=== PATIENT | female | born 1955 | race Caucasian/White ===

== ENCOUNTER 2019-09-05 15:48 | Observation (INO) | payer OTHER ==
--- NOTE | 2019-09-05 17:11 | ED ---
Upper Extremity Pain - HPI Summary HPI Summary: This pt is a 63 y/o female, accompanied by , presenting to [facility] referred by PCP for left arm pain. Pt reports last week she was in a pool in [place] when she had a sudden sharp pain down her left arm. At that time she rates her pain 10/10 in severity. Pt notes this pain resolved completely. However today while at work at around 1200 she had the same pain again on left arm. Additionally today her jaw felt sore and had right sided groin pain. She notes the severity of her symptoms are rated 1/10 in severity. Denies fever, chills, sweats, cough, SOB, chest pain. Denies erythema of eyes, sore throat, abd pain, nausea, vomiting, dysuria, hematuria, myalgia, edema, rash, or dizziness. PMHx borderline high cholesterol. FHx of mother with [place] at age 52 and triple bypass. - History of Current Complaint Chief Complaint: EDChestPainROMI Stated Complaint: LEFT ARM PAIN/SENT BY DR PER PT Time Seen by Provider: 09/05/19 16:56 Hx Obtained From: Patient Mechanism Of Injury: Other - no trauma Onset/Duration: Started Days Ago Timing: Lasting Hours Severity Currently: Mild Pain Location: Arm - left Character: Sharp, Aching Alleviating Factor(s): Nothing Associated Signs & Symptoms: Negative: Swelling, Redness, Fever, Chest Pain, SOB , Diaphoresis, Nausea, Vomiting - Allergies/Home Medications Allergies/Adverse Reactions: Allergies Allergy/AdvReac Type Severity Reaction Status Date / Time No Known Allergies Allergy Verified 12/24/17 14:54 PMH/Surg Hx/FS Hx/Imm Hx Endocrine/Hematology History: Denies: Hx Diabetes Cardiovascular History: Reports: Hx Hypercholesterolemia - borderline Musculoskeletal History: Denies: Hx Osteoporosis - Cancer History Hx Chemotherapy: No Hx Radiation Therapy: No Infectious Disease History: No Infectious Disease History: Denies: Traveled Outside the [place] in Last 30 Days - Family History Known Family History: Positive: Cardiac Disease - Mother with [place] at age 52 and triple bypass - Social History Alcohol Use: Occasionally Substance Use Type: Reports: None Smoking Status (MU): Former Smoker Review of Systems Negative: Fever, Chills, Skin Diaphoresis Negative: Erythema Negative: Sore Throat Negative: Chest Pain Negative: Shortness Of Breath, Cough Negative: Abdominal Pain, Vomiting, Nausea Negative: dysuria, hematuria Musculoskeletal: Other - POSITIVE: left arm pain, jaw pain, right groin pain Negative: Myalgia, Edema Negative: Rash Neurological: Other - NEGATIVE: dizziness All Other Systems Reviewed And Are Negative: Yes Physical Exam - Summary Physical Exam Summary: Constitutional: Well-developed, Well-nourished, Alert. (-) Distressed Skin: Warm, Dry HENT: Normocephalic; Atraumatic Eyes: Conjunctiva normal Neck: Musculoskeletal ROM normal neck. (-) JVD, (-) Stridor, (-) Tracheal deviation Cardio: Rhythm regular, rate normal, Heart sounds normal; Intact distal pulses; The pedal pulses are 2+ and symmetric. Radial pulses are 2+ and symmetric. (-) Murmur Pulmonary/Chest wall: Effort normal. (-) Respiratory distress, (-) Wheezes, (-) Rales Abd: Soft, (-) Tenderness, (-) Distension, (-) Guarding, (-) Rebound Musculoskeletal: (-) Edema Lymph: (-) Cervical adenopathy Neuro: Alert, Oriented x3 Psych: Mood and affect Normal Triage Information Reviewed: Yes Vital Signs On Initial Exam: Initial Vitals Temp Pulse Resp BP Pulse Ox 97.3 F 75 16 0/0 96 09/05/19 15:55 09/05/19 15:55 09/05/19 15:55 09/05/19 15:55 09/05/19 15:55 Vital Signs Reviewed: Yes Procedures - Sedation Patient Received Moderate/Deep Sedation with Procedure: No Diagnostics - Vital Signs Vital Signs Temp Pulse Resp BP Pulse Ox 09/05/19 15:55 97.3 F 75 16 0/0 96 - Laboratory Result Diagrams: 09/05/19 17:33 09/05/19 17:33 Lab Statement: Any lab studies that have been ordered have been reviewed, and results considered in the medical decision making process. - Radiology Chest XR Radiology Interpretation Completed By: Radiologist Summary of Radiographic Findings: pending official radiology report. - EKG 16:01 Cardiac Rate: NL - at 69 bpm EKG Rhythm: Sinus Rhythm Summary of EKG Findings: EKG at 16:01 shows normal sinus rhythm at 69 bpm. No STEMI. Re-Evaluation - Re-Evaluation First Eval Re-Evaluation Time: 18:27 Change: Improved Comment: Pt reports all her symptoms have resolved after nitroglycerin. Course/Dx - Course Assessment/Plan: Pt is a 63 y/o female, accompanied by , presenting to [facility] referred by PCP for left arm pain. Pt reports last week she was in a pool in [place] when she had a sudden sharp pain down her left arm. At that time she rates her pain 10/10 in severity. Pt notes this pain resolved completely. However today while at work at around 1200 she had the same pain again on left arm. Additionally today her jaw felt sore and had right sided groin pain. She notes the severity of her symptoms are rated 1/10 in severity. Denies fever, chills, sweats, cough, SOB, chest pain. Lab results are unremarkable. In the ED course the pt was given aspirin and nitroglycerin. Pt reports all her symptoms have resolved after nitroglycerin. Discussed pt care with Dr. Hernandez, hospitalist, who accepted the pt for admission. - Diagnoses Provider Diagnoses: Acute angina - Physician Notifications Discussed Care of Patient With: Heaven Hernandez - hospitalist Time Discussed With Above Provider: 18:24 Instructed by Provider To: Admit As Inpatient Discharge ED - Sign-Out/Discharge Documenting (check all that apply): Patient Departure - Admit to [facility] - Discharge Plan Condition: Stable Disposition: ADMITTED TO [facility] Referrals: Willie Barrera MD [Primary Care Provider] - - Attestation Statements Document Initiated by Scribe: Yes Documenting Scribe: Desi Pizano Provider For Whom Scribe is Documenting (Include Credential): Daniel Guallpa MD Scribe Attestation: Desi Mandujano, scribed for Daniel Guallpa MD on 09/05/19 at 1851. Status of Scribe Document: Ready
[2019-09-05 17:41] LABS: ABS Basophils 0.1 10^3/ul (0-0.2); ABS Eosinophils 0.1 10^3/ul (0-0.6); ABS Lymphocytes 2.2 10^3/ul (1.0-4.8); ABS Monocytes 0.6 10^3/ul (0-0.8); ABS Neutrophils 5.7 10^3/ul (1.5-7.7); Eosinophil % 1.3 %; Hematocrit 48 % (35-47); Lymphocyte % 25.9 %; Mean Corpuscular HGB Conc 34 g/dL (31-36); Mean Corpuscular Hemoglobin 31 pg (27-31); Mean Corpuscular Volume 92 fL (80-97); Mean Platelet Volume 8.1 fL (7.4-10.4); Platelet Count 261 10^3/uL (150-450); Red Cell Distribution Width 14 % (10-15); White Blood Count 8.7 10^3/uL (3.5-10.8)
[2019-09-05] MEDS ORDERED: Nitroglycerin TAB 0.4 MG* 0.4 MG TAB SL ONE (17:50)
[2019-09-05] MEDS ORDERED: Aspirin 81 mg CHEW TAB* 81 MG TAB.CHEW PO ONE (17:50)
[2019-09-05 17:52] LABS: INR 0.96 (0.82-1.09)
[2019-09-05 18:03] LABS: Albumin 4.4 g/dL (3.2-5.2); Albumin/Globulin Ratio 1.5 (1-3); BUN/Creatinine Ratio 11.8 (8-20); Calcium 9.4 mg/dL (8.6-10.3); EGFR African American 93.3 (>60); EGFR Non-African American 77.1 (>60); Globulin 2.9 g/dL (2-4); Potassium 4.4 mmol/L (3.5-5.0); Total Bilirubin 0.4 mg/dL (0.2-1.0); Total Protein 7.3 g/dL (6.4-8.9)
[2019-09-05] MEDS ORDERED: Acetaminophen TAB* 325 MG PO PRN (19:09)
[2019-09-05] MEDS ORDERED: Al Hydrox/Mg Hydrox/Simet LIQ* 30 ML UDC PO PRN (19:09)
[2019-09-05] MEDS ORDERED: Enoxaparin(*) 40 MG/0.4 ML SYR SUBCUT SCH (21:00)
[2019-09-05] MEDS ORDERED: NS 0.9% 1000 ML** 1,000 ML IV SCH (21:15)
--- NOTE | 2019-09-05 23:28 | HP ---
CC: Dr. Varela * HISTORY AND PHYSICAL: DATE OF ADMISSION: 09/05/19 PRIMARY CARE PROVIDER: Dr. Varela. ATTENDING PHYSICIAN WHILE IN THE HOSPITAL: Dr. Laurent Garcia * (dictated by Elin Golden NP). CHIEF COMPLAINT: Chest pain. HISTORY OF PRESENT ILLNESS: Ms. Holt is a 63-year-old female with no significant past medical history who presented to the emergency room with complaints of left upper arm pain that started approximately new today. She rated the pain at a 6, described it as sharp and jabbing. The patient reports that she has also had a similar episode approximately 1 week ago while she was in [place]. She reports that at that time the pain lasted for 1 to 2 days and then subsided. The patient also reports that when she is walking fast over the past 2 months, she develops jaw pain that described as sore and aching that subsides with rest. She also develops this jaw pain with activity. Due to these symptoms, the patient presented for further evaluation at the recommendation of her primary care doctor, as she saw Dr. Barrera today who referred her to the emergency room for further evaluation. While in the emergency room, the patient had left arm pain rated at a 6, she did receive aspirin and nitro. She reports that after receiving the nitroglycerin, her left arm pain totally subsided. She denies any associated diaphoresis, nausea or vomiting, shortness of breath associated with the chest pain. She denies any fever, chills, recent illnesses, or edema. She denies any cough, hemoptysis. She does report occasional shortness of breath with exertion. She denies any nausea, vomiting, diarrhea, abdominal pain, gross hematuria, or dysuria. Denies any focal weakness, sensory loss, visual complaints, dysphagia, arthralgias, myalgias, rashes, lesions, open sores. Denies any psychosis. She does report a significant amount of stress at work as the patient reports she is getting ready to retire and is currently packing her home to move to [place]. While in the emergency room, the patient had routine lab work, her initial troponin was 0.00. She was given aspirin 324 mg and nitro sublingual x1 with complete resolution of her chest pain. Due to the patient's history of 2 episodes of left arm pain, improvement with nitro and family history, Hospital Medicine was asked to evaluate her for admission. PAST MEDICAL HISTORY: None. PAST SURGICAL HISTORY: 1. Hernia repair. 2. Eye surgery as a child. 3. Repair of deviated septum. 4. [place] teeth removal. HOME MEDICATIONS: None. ALLERGIES: No known drug allergies. FAMILY HISTORY: Mother had an [place] and triple bypass; first [place] was at the age of 52. No reported history of diabetes within the family. Father from melanoma. SOCIAL HISTORY: The patient reports that she stopped smoking 33 years ago. Prior to that, she smoked less than a quarter pack a day x15 years. Does report occasional alcohol use. No illicit drug use. She is . Surrogate decision maker in the event she is unable to make her own decision is her . She is a full code. REVIEW OF SYSTEMS: An 11-point review of systems was completed. All pertinent positives were mentioned in the HPI. PHYSICAL EXAMINATION GENERAL: At this time, Ms. Holt is a 63-year-old female. She is alert and oriented. Resting on the stretcher in the emergency room. She is in no acute distress. VITAL SIGNS: Blood pressure is 143/88, heart rate is 65, respirations are 20, O2 saturation 95%, temperature is 97.3. HEENT: Head is atraumatic, normocephalic. Eyes: EOMs are intact. Sclerae anicteric and not pale. Oral mucosa appeared to be moist. NECK: Supple. LUNGS: Clear to auscultation bilaterally. No wheezes, rales, or rhonchi. CARDIAC: S1, S2. Regular rate and rhythm. No murmurs, rubs, or gallops. ABDOMEN: Soft and nontender. Bowel sounds are present x4. EXTREMITIES: She is able to move all 4 extremities. There is no clubbing or cyanosis. NEUROLOGIC: She is awake, alert, and oriented x3. Speech is clear. Thought process is intact. There are no gross focal deficits. DIAGNOSTIC STUDIES/LAB DATA: WBCs are 8.7, RBCs 5.20, hemoglobin 16.0, hematocrit is 48, platelet count is 261,000. INR is 0.96. Sodium 141, potassium 4.4, chloride 107, carbon dioxide is 25. Anion gap is 9. BUN was 9, creatinine 0.76. Glucose 102. Calcium 9.4. ASTs were 22, ALTs were 20, alkaline phosphatase was 88. Troponin was 0.00. She had an electrocardiogram which showed sinus rhythm at a rate of 69, inverted T-wave in V1, flattened T's in aVF and V2. Chest x-ray pending. ASSESSMENT AND PLAN: Ms. Holt is a 63-year-old female with no significant past medical history, who presented to the emergency room with complaints of chest pain. She will be admitted under observation for: 1. Chest pain. We will monitor on telemetry. We will continue to trend her troponins. I will get CBC and BMP in the a.m. I will get a lipid profile. She was given aspirin in the emergency room. I will continue her on aspirin 81 mg p.o. daily. She will have a nuclear stress test to rule out any ischemia from related chest pain. We will monitor her on telemetry overnight. Should the patient have elevated lipid profile, will consider starting statin therapy. 2. FEN. She can have a heart-healthy no caffeine diet. 3. Code status. She is full code. 4. DVT prophylaxis. I will place her on Lovenox subcu. TIME SPENT: Time spent on this admission was 60 minutes, greater than half that time was spent at the bedside, reviewing events leading thus far to her hospitalization, performing physical exam, and reviewing my plan of care. I have discussed this with my attending, Dr. Laurent Garcia; he is in agreement with my plan. ELIN GOLDEN, SHERYL [id number]/[facility] #: [id number] REYNALDO
[2019-09-06 06:47] LABS: ALT 16 U/L (7-52); AST 17 U/L (13-39); Albumin 3.7 g/dL (3.2-5.2); Albumin/Globulin Ratio 1.6 (1-3); Alkaline Phosphatase 72 U/L (34-104); Anion Gap 5 mmol/L (2-11); BUN/Creatinine Ratio 11.4 (8-20); Blood Urea Nitrogen 8 mg/dL (6-24); CO2 Carbon Dioxide 25 mmol/L (22-32); Calcium 8.5 mg/dL (8.6-10.3); Chloride 111 mmol/L (101-111); Cholesterol 226 mg/dL; EGFR African American 102.6 (>60); EGFR Non-African American 84.8 (>60); Globulin 2.3 g/dL (2-4); Glucose 93 mg/dL (70-100); HDL Cholesterol 51.1 mg/dL; LDL Cholesterol 150 mg/dL; Potassium 4.2 mmol/L (3.5-5.0); Sodium 141 mmol/L (135-145); Triglycerides 127 mg/dL
[2019-09-06] MEDS ORDERED: LORazepam TAB(*) 1 MG PO ONE (07:14)
[2019-09-06] MEDS ORDERED: Aspirin EC TAB* 81 MG TAB.EC PO SCH (09:00)
[2019-09-06 11:39] VITALS: BP 129/90
--- NOTE | 2019-09-07 02:06 | DS ---
DISCHARGE SUMMARY: DATE OF ADMISSION: 09/05/19 DATE OF DISCHARGE: 09/06/19 PROVIDER: Elin Golden NP. PRIMARY CARE PROVIDER: Dr. Varela. ATTENDING PHYSICIAN WHILE IN THE HOSPITAL: Dr. Saige Patterson * (dictated by Elin Golden NP). PRIMARY DIAGNOSES: Chest pain. SECONDARY DIAGNOSES: None. STUDIES COMPLETED WHILE IN THE HOSPITAL: The patient had a chest x-ray on 09/05. Radiologist impression: No evidence for active cardiopulmonary disease. She had an electrocardiogram that showed sinus rhythm at a rate of 70. She had a nuclear stress test, which was low risk. No fixed or reversible perfusion defects. DISCHARGE MEDICATIONS: [place] Medications: None. Continued Home Medications: None. HISTORY OF PRESENT ILLNESS AND HOSPITAL COURSE: Ms. Holt is a 63-year-old female with no significant past medical history who presented to [facility] due to left arm pain that started approximately 12 p.m. on the day of admission. The patient also reports that she has jaw pain associated with walking fast and exertion that subsides with rest. The patient had also reversible episode of left arm pain while she was in [place] approximately 1 week ago. She does report increasing stress as she is preparing to move to [place] and returning from her job next week, but due to the sharp jabbing pain in her left arm, she presented to the emergency room for further evaluation. During this hospitalization, the patient had routine lab work. She had serial troponins, that were all within normal limits. She had a nuclear exercise stress test that was low risk showing no reversible ischemia or perfusion defects. At this time, her left arm pain has subsided. She has had no further episodes of left arm pain. The patient does report that during her exercise portion of her stress test she did again develop jaw pain that subsided with rest. There were no EKG changes during the exercise portion of her stress test as well. Given the patient's negative troponins, negative stress test at this time, she is stable for discharge home. REVIEW OF SYSTEMS: The patient denies any fevers, chills, or unintended weight loss. She denies any further episodes of chest pain overnight. She denies any cough or congestion. She denies any nausea, vomiting, diarrhea, abdominal pain , gross hematuria, or dysuria. She denies any focal weakness or sensory loss. She denies any dysphagia, arthralgias, myalgias, rashes, lesions, or open sores. PHYSICAL EXAM: General: At this time, Ms. Holt is a 63-year-old female. She is resting in her hospital bed. She is in no acute distress. Vital Signs: Blood pressure 129/90, heart rate 72, respirations 20, O2 saturation 97%, temperature is 97.5. HEENT: Head is atraumatic, normocephalic. Eyes: EOMs are intact. Sclerae anicteric and not pale. Oral mucosa appeared to be moist. Neck is supple. Lungs are clear to auscultation bilaterally. No wheezes, rales, or rhonchi. Cardiac: S1, S2. Regular rate and rhythm. No murmurs, rubs , or gallops. Abdomen: Soft and nontender. Bowel sounds are present x4. Extremities: She is able to move all 4 extremities. There is no clubbing or cyanosis. The skin is intact. Neurologic: She is awake, alert, and oriented x3. Speech is clear. Thought process is intact. There are no gross focal deficits. At this time, Ms. Holt is stable for discharge home. DISCHARGE PLAN: Ms. Holt will be discharged home. Activity as tolerated. 1. Chest pain. At this time, her chest pain does not appear to be cardiac related as she did have negative troponins and negative nuclear stress test. I recommend that she follow up with her primary care provider in 4 to 7 days for further evaluation of noncardiac chest pain. I suspect a component of her chest pain could be related to stress as the patient does report she has experienced increased stress at this time due to retiring from her current job and moving to [place]. 2. Elevated cholesterol. The patient does have an elevated cholesterol panel during this hospitalization. I recommended that the patient use diet and exercise to improve her cholesterol. Her ASCVD risk calculator shows that she has a 5.1% risk of stroke at 10 years and at this time, she does not require statin therapy. On the basis of her calculated risk for heart disease, stroke is less than 7.5%. The ACC and AHA guidelines suggest no indication to be placed on a statin therapy at this time. 3. Hypertension. The patient was hypertensive during this hospitalization. She did have blood pressure that is in the 140s to 150s, but reports that she was anxious and stressed. Post stress test, her blood pressure improved to 129/ 90. I would continue to monitor and consider starting medication to control her hypertension as well as diet and exercise. The patient should follow up with her primary care provider in 4 to 7 days. The patient was instructed to return to the emergency room for any worsening or severe chest pain, shortness of breath, syncope, or any other concerning symptoms. The patient and her verbalized understanding. CONDITION ON DISCHARGE: Stable. DISPOSITION ON DISCHARGE: Home. TIME SPENT: Time spent on this discharge was 60 minutes; greater than half that time was spent at the bedside reviewing discharge instructions and plans. I have discussed this with my attending, Dr. Saige Patterson; she is in agreement with my plan. ELIN GOLDEN, SHERYL [id number]/[facility] #: [id number] REYNALDO
== END 2019-09-06 13:05 | disposition home or self-care (01) ==
LOC: ED 15:48 → MEDTELE 19:09
PROVIDERS: ADMIT Internal Medicine; ATTEND Internal Medicine
DX: R07.9 Chest pain, unspecified (principal); M79.602 Pain in left arm; E78.00 Pure hypercholesterolemia, unspecified; I10 Essential (primary) hypertension; Z87.891 Personal history of nicotine dependence
CPT/HCPCS: 36415; 71045; 78452; 80048; 80053; 80061; 80076; 83036; 84484; 85025; 85610; 93005; 93017; 96360; 96361; 96372; 99284; A9270-GY; A9502; G0378; J1650